=== PATIENT | male | born 1995 | race Caucasian/White ===

== ENCOUNTER 2016-10-02 14:44 | Emergency (ER) | payer OTHER ==
[~2016-10-02] VITALS: Ht 188 cm; Wt 68.0 kg
--- NOTE | 2016-10-02 15:22 | ED GENERAL ADULT ---
See Addendum History of Present Illness General Chief Complaint: Chest Pain Stated Complaint: CHEST PAIN/TIGHTNESS X 2DAYS, SOB Source: patient Exam Limitations: no limitations Vital Signs & Intake/Output Vital Signs & Intake/Output Vital Signs Date Time Temp Pulse Resp B/P B/P Pulse O2 O2 Flow FiO2 Mean Ox Delivery Rate 10/02 1837 96.5 65 16 130/56 98 Room Air 10/02 1717 96.2 81 16 118/68 100 Room Air 10/02 1556 98 10/02 1453 98.9 72 16 120/71 98 Room Air ED Intake and Output 10/03 0000 10/02 1200 Intake Total 90 Output Total Balance 90 Intake, Oral 90 Patient 150 lb Weight Weight Reported by Patient Measurement Method Allergies Coded Allergies: No Known Allergies (10/02/16) Reconcile Medications Albuterol Sulfate (Ventolin Hfa) 90 MCG HFA.AER.AD 2 PUF INH Q4-6 PRN PRN SOB Ibuprofen 600 MG TABLET 1 TAB PO TID PRN PAIN with food Prednisone 20 MG TABLET 2 TAB PO DAILY REACTIVE AIRWAY DISEASE Triage Note: PT C/O CHEST PAIN THAT TIGHTENS AND HE FEELS SOB DURING THAT TIME. DENIES ANY INJURY. EKG PERFORMED. Triage Nurses Notes Reviewed? yes Onset: Abrupt Duration: hour(s): Timing: recent history HPI: 10/02/16 3:40 PM 20-year-old man presents to the emergency department complaining of left-sided chest wall pain. According to the patient he was in his usual state of health until yesterday when he developed a sudden onset of left-sided chest wall pain and difficulty breathing. No cough. The onset of the symptoms have been abrupt, the duration has been since yesterday, the severity is significant as his symptoms required him to come to the emergency department for care. The pain is worse when he takes a deep breath, is also worse with palpation of the left chest wall. Wells score is low risk. PERC score is negative. Past History Travel History Traveled to [place] past 21 day No Medical History Any Pertinent Medical History? see below for history Surgical History Surgical History: none Psychosocial History What is your primary language Luxembour[place] Tobacco Use: Never used Family History Hx Contributory? No Review of Systems Review of Systems Constitutional: Reports: no symptoms. EENTM: Reports: no symptoms. Respiratory: Reports: short of breath. Cardiovascular: Reports: see HPI. GI: Reports: no symptoms. Genitourinary: Reports: no symptoms. Musculoskeletal: Reports: muscle pain. Skin: Reports: no symptoms. Neurological/Psychological: Reports: no symptoms. Hematologic/Endocrine: Reports: no symptoms. Immunologic/Allergic: Reports: no symptoms. All Other Systems: Reviewed and Negative Physical Exam Physical Exam General Appearance: well developed/nourished, alert, awake, anxious, mild distress Head: atraumatic, normal appearance Eyes: Bilateral: normal appearance, PERRL, EOMI. Ears, Nose, Throat: normal pharynx, normal ENT inspection Neck: normal inspection, supple Respiratory: normal breath sounds, no respiratory distress Cardiovascular: regular rate/rhythm, left-sided rib tenderness Peripheral Pulses: 4+ radial (R), 4+ radial (L) Gastrointestinal: non-tender Back: normal range of motion Extremities: normal inspection, normal range of motion, no edema Neurologic/Psych: no motor/sensory deficits, awake, alert, oriented x 3 Skin: intact, normal color, warm/dry Comments: Chest exam reveals poor air entry scant wheeze on the left Core Measures ACS in differential dx? No CVA/TIA Diagnosis: No Severe Sepsis Present: No Septic Shock Present: No Progress Differential Diagnoses I considered the following diagnoses in my evaluation of the patient: [ Pneumothorax, myocarditis, asthma, costochondritis, pleuritis, pneumonia] Pulmonary embolism considered-PERC score and well score low risk. Aortic dissection considered-he is 20 years old, no hypertension, no history of Marfan's. Plan of Care: Orders Procedure Date/time Status TROPONIN LEVEL 10/02 1537 Complete LYME TITRE 10/02 1537 Active COMPREHENSIVE METABOLIC PANEL 10/02 1537 Complete CBC WITHOUT DIFFERENTIAL 10/02 1537 Complete EKG 10/02 1445 Active Laboratory Tests 10/02/16 1553: Anion Gap 11, Estimated GFR > 60, BUN/Creatinine Ratio 14.4, Glucose 82, Calcium 10.1, Total Bilirubin 1.1, AST 18, ALT 24, Alkaline Phosphatase 81, Troponin I < 0.01, Total Protein 7.6, Albumin 4.8, Globulin 2.8, Albumin/Globulin Ratio 1.7, CBC w Diff NO MAN DIFF REQ, RBC 5.24, MCV 88.1, MCH 29.6, RDW 12.7, MPV 6.7 L, Gran % 63.4, Lymphocytes % 24.7, Monocytes % 8.9, Eosinophils % 2.5, Basophils % 0.5, Absolute Granulocytes 3.8, Absolute Lymphocytes 1.5, Absolute Monocytes 0.5 , Absolute Eosinophils 0.1, Absolute Basophils 0, PUBS MCHC 33.6, Lyme Disease Antibody Pending Initial ED EKG: NSR Departure Departure Disposition: STILL A PATIENT Condition: Stable Clinical Impression Primary Impression: Chest wall pain Referrals: CINDY GOMEZ,ELLEN Figueroa (PCP/Family) Departure Forms: Customer Survey General Discharge Information Prescriptions: Current Visit Scripts Prednisone 2 TAB PO DAILY #10 TAB Ibuprofen 1 TAB PO TID PRN PAIN #30 TAB with food Albuterol Sulfate (Ventolin Hfa) 2 PUF INH Q4-6 PRN PRN SOB #1 INHAL Comments 10/02/16 6:30 PM Patient has no shortness of breath on reevaluation Chest x-ray and EKG are normal Troponin is nondetectable PERC score and Well's score is low risk No problems with vision or lax joints. No family history of cardiac disease or blood clotting issues. I suspect he has pleuritis and mild reactive airway disease. We'll treat with prednisone and ibuprofen and albuterol He'll follow-up with his doctor this week Critical Care Note Critical Care Note Critical Care Time: non-applicable
--- NOTE | 2016-10-02 15:57 | RADIOLOGY REPORT ---
EXAMINATION: XR PORTABLE CHEST CLINICAL INFORMATION: Chest pain, rule out pneumothorax. COMPARISON: None TECHNIQUE: Portable AP erect view of the chest was obtained. FINDINGS: The cardiomediastinal silhouette is unremarkable. The lungs and pleural spaces appear clear without evidence of congestion, consolidation, or significant appearing effusion or atelectasis. There is no evidence of pneumothorax or pulmonary edema. Included osseous structures appear largely unremarkable. IMPRESSION: Unremarkable examination.
[2016-10-02 16:05] LABS: ABSOLUTE BASOPHIL COUNT 0 /CUMM (0.0-0.2); ABSOLUTE EOSINOPHIL COUNT 0.1 /CUMM (0.0-0.7); ABSOLUTE GRANULOCYTE CT 3.8 /CUMM (1.4-6.5); ABSOLUTE LYMPH COUNT 1.5 /CUMM (1.2-3.4); ABSOLUTE MONOCYTE COUNT 0.5 /CUMM (0.10-0.60); BASOPHIL % 0.5 % (0.0-2.0); EOSINOPHIL % 2.5 % (0-5); GRANULOCYTE % 63.4 % (42.2-75.2); HEMATOCRIT 46.1 % (42-52); MEAN CORPUSCULAR HGB 29.6 PG (27.0-31.0); MEAN CORPUSCULAR HGB CONC 33.6 G/DL (33.0-37.0); MEAN CORPUSCULAR VOLUME 88.1 FL (80.0-94.0); MEAN PLATELET VOLUME 6.7 FL (7.4-10.4); PLATELET COUNT 250 /CUMM (130-400); RBC DISTRIBUTION WIDTH 12.7 % (11.5-14.5); RED BLOOD CELL CT 5.24 /CUMM (4.70-6.10); WHITE BLOOD CELL COUNT 5.9 /CUMM (4.8-10.8)
[2016-10-02] MEDS ORDERED: PREDNISONE20 M1 PO (18:34)
[2016-10-02] MEDS ORDERED: VENTOLIN HFA18 GM INH (18:34)
[2016-10-02] MEDS ORDERED: IBUPROFEN600 M1 PO (18:34)
[2016-10-02 18:37] VITALS: BP 130/56
== END 2016-10-02 18:48 ==
LOC: ERH 14:44
PROVIDERS: Emergency Medicine
DX: R07.89 Other chest pain (principal)
CPT/HCPCS: 1263; 86618; 93005; 93010